=== PATIENT | male | born 2000 | race Caucasian/White ===

== ENCOUNTER 2020-10-20 19:12 | Emergency (ER) | payer OTHER ==
[~2020-10-20] VITALS: Ht 185.4 cm; Wt 102.3 kg
[2020-10-20 19:13] VITALS: BP 155/75
--- NOTE | 2020-10-20 20:03 | REPVR ---
PROCEDURE INFORMATION: Exam: XR Left Ankle Exam date and time: 10/20/2020 7:38 PM Age: 20 years old Clinical indication: Pain; Ankle; Left; Additional info: Injury TECHNIQUE: Imaging protocol: XR Left ankle. Views: 3 or more views. COMPARISON: No relevant prior studies available. FINDINGS: Bones/joints: There is no fracture or dislocation. The ankle mortise is symmetric. The joint spaces are preserved. No arthropathy is noted. Soft tissues: Unremarkable. IMPRESSION: No acute findings. Electronically signed by: Heladio Arias On 10/20/2020 20:03:02 PM
[2020-10-20] MEDS ORDERED: KETOROLAC TROMETHAMINE 10 MG TAB PO ONE (20:15)
== END 2020-10-20 20:25 | disposition home or self-care (01) ==
LOC: M ED 19:12
DX: S93.402A Sprain of unspecified ligament of left ankle, initial encounter (principal); V00.318A Other snowboard accident, initial encounter; Y92.830 Public park as the place of occurrence of the external cause; Y93.23 Activity, snow (alpine) (downhill) skiing, snowboarding, sledding, tobogganing and snow tubing; F17.210 Nicotine dependence, cigarettes, uncomplicated